=== PATIENT | male | born 1985 | race Caucasian/White ===

== ENCOUNTER 2018-07-09 04:50 | Emergency (ER) | payer OTHER ==
[~2018-07-09] VITALS: Ht 175.3 cm; Wt 108.9 kg
--- NOTE | 2018-07-09 04:52 | ED.ADGEN ---
Past History Past Medical History: Kidney Stones Adult General Chief Complaint Chief Complaint ".. I woke up with severe rt. flank and abd. pain.. I was nauseated... stabbing severe pain in my Rt. flank.. I was sweating... It cheyanne felt like when I had a kidney stone before..."..." I did let myself get dehydrated ...".." I am however already starting to feel better.. I did drink to take bottles of water..." HPI HPI Patient is a 33 year old male who presents with above hx and complaints of severe right flank pain. Patient relates pain was similar to previous kidney stone episode. Patient denies any trauma. Patient denies any intake bad food. Patient recently consumed a course of fettuccine with chicken and shrimp. Patient denies any past history of gallbladder colic. Patient states his pain was 10 out of 10 at home but by the time he arrived to the emergency department is markedly decreased. She denies any travel. Patient denies any immunosuppression. Patient denies any trauma. Patient normally healthy. Review of Systems Review of Systems Constitutional: Denies fever or chills [] Eyes: Denies change in visual acuity, redness, or eye pain [] HENT: Denies nasal congestion or sore throat [] Respiratory: Denies cough or shortness of breath [] Cardiovascular: No additional information not addressed in HPI [] GI: History of right flank abdominal pain, nausea,. Denies vomiting, bloody stools or diarrhea [] : Denies dysuria. Patient thinks he may be having some hematuria [] Musculoskeletal: Denies back pain or joint pain [] Integument: Denies rash or skin lesions [] Neurologic: Denies headache, focal weakness or sensory changes [] Endocrine: Denies polyuria or polydipsia [] All other systems were reviewed and found to be within normal limits, except as documented in this note. Family History Family History History of renal stones Current Medications Current Medications Current Medications Medications (Trade) Dose Ordered Sig/Kylee Start Time Stop Time Status Last Admin Dose Admin Famotidine (Pepcid Vial) 20 mg STK-MED ONCE 07/09/18 05:31 07/09/18 05:32 DC Ketorolac Tromethamine (Toradol 30mg Vial) 30 mg STK-MED ONCE 07/09/18 05:31 07/09/18 05:32 DC Lactated Ringer's 1,000 ml @ 1,000 mls/hr Q1H 07/09/18 05:15 07/09/18 06:14 DC 07/09/18 05:26 1,000 MLS/HR Ondansetron HCl (Zofran) 4 mg STK-MED ONCE 07/09/18 05:31 07/09/18 05:32 DC See nursing for home meds Allergies Allergies Allergies Coded Allergies Type Severity Reaction Last Updated Verified Penicillins Allergy Intermediate rash 07/09/18 Yes Physical Exam Physical Exam Constitutional: Well developed, well nourished, moderately acute distress, non- toxic appearance. [] HENT: Normocephalic, atraumatic, bilateral external ears normal, oropharynx moist, no oral exudates, nose normal. [] Eyes: PERRLA, EOMI, conjunctiva normal, no discharge. [] Neck: Normal range of motion, no tenderness, supple, no stridor. [] Cardiovascular:Heart rate regular rhythm, no murmur [] Lungs & Thorax: Bilateral breath sounds with apex on auscultation [] Abdomen: Bowel sounds decreased, soft, right flank tenderness on percussion, no masses, no pulsatile masses. Declines rectal exam at this time. Testicles nontender. No penile discharge. No true rebound pain. Skin: Warm, dry, no erythema, no rash. [] Back: No tenderness, no CVA tenderness. [] Extremities: No tenderness, no cyanosis, no clubbing, ROM intact, no edema. [] No true psoas sign on right. Neurologic: Alert and oriented X 3, normal motor function, normal sensory function, no focal deficits noted. [] Psychologic: Affect anxious, judgement normal, mood normal. [] Current Patient Data Vital Signs Vital Signs Date Time Temp Pulse Resp B/P (MAP) Pulse Ox O2 Delivery O2 Flow Rate FiO2 07/09/18 06:07 89 18 124/81 (95) 100 Room Air 07/09/18 05:43 97.5 Lab Results Laboratory Tests Test 07/09/18 05:18 07/09/18 05:25 Urine Collection Type Unknown Urine Color Yellow Urine Clarity Clear Urine pH 5.5 Urine Specific [place] >=1.030 Urine Protein Neg (NEG-TRACE) Urine Glucose (UA) Neg mg/dL (NEG) Urine Ketones (Stick) Neg mg/dL (NEG) Urine Blood Large (NEG) Urine Nitrite Neg (NEG) Urine Bilirubin Neg (NEG) Urine Urobilinogen Dipstick 0.2 mg/dL (0.2 mg/dL) Urine Leukocyte Esterase Neg (NEG) Urine RBC >40 /HPF (0-2) Urine WBC Occ /HPF (0-4) Urine Squamous Epithelial Cells Occ /LPF Urine Bacteria 0 /HPF (0-FEW) Urine Opiates Screen Neg (NEG) Urine Methadone Screen Neg (NEG) Urine Barbiturates Neg (NEG) Urine Phencyclidine Screen Neg (NEG) Urine Amphetamine/Methamphetamine Pos (NEG) Urine Benzodiazepines Screen Neg (NEG) Urine Cocaine Screen Neg (NEG) Urine Cannabinoids Screen Neg (NEG) Urine Ethyl Alcohol Neg (NEG) White Blood Count 8.2 x10^3/uL (4.0-11.0) Red Blood Count 4.80 x10^6/uL (4.30-5.70) Hemoglobin 15.0 g/dL (13.0-17.5) Hematocrit 43.7 % (39.0-53.0) Mean Corpuscular Volume 91 fL (79-100) Mean Corpuscular Hemoglobin 31 pg (25-35) Mean Corpuscular Hemoglobin Concent 34 g/dL (31-37) Red Cell Distribution Width 14.1 % (11.5-14.5) Platelet Count 337 x10^3/uL (140-400) Neutrophils (%) (Auto) 50 % (31-73) Lymphocytes (%) (Auto) 32 % (24-48) Monocytes (%) (Auto) 14 % (0-9) H Eosinophils (%) (Auto) 3 % (0-3) Basophils (%) (Auto) 1 % (0-3) Neutrophils # (Auto) 4.1 x10^3uL (1.8-7.7) Lymphocytes # (Auto) 2.7 x10^3/uL (1.0-4.8) Monocytes # (Auto) 1.1 x10^3/uL (0.0-1.1) Eosinophils # (Auto) 0.2 x10^3/uL (0.0-0.7) Basophils # (Auto) 0.1 x10^3/uL (0.0-0.2) Prothrombin Time 9.9 SEC (9.4-11.4) Prothrombin Time INR 1.0 (0.9-1.1) PTT 26 SEC (23-33) Sodium Level 138 mmol/L (136-145) Potassium Level 3.8 mmol/L (3.5-5.1) Chloride Level 102 mmol/L (98-107) Carbon Dioxide Level 29 mmol/L (21-32) Anion Gap 7 (6-14) Blood Urea Nitrogen 23 mg/dL (8-26) Creatinine 1.2 mg/dL (0.7-1.3) Estimated GFR (Cockcroft-Gault) 70.2 Glucose Level 117 mg/dL (70-99) H Calcium Level 9.1 mg/dL (8.5-10.1) Total Bilirubin 0.3 mg/dL (0.2-1.0) Direct Bilirubin 0.1 mg/dL (0.0-0.2) Aspartate Amino Transferase (AST) 39 U/L (15-37) H Alanine Aminotransferase (ALT) 45 U/L (16-63) Alkaline Phosphatase 76 U/L (46-116) Total Protein 7.9 g/dL (6.4-8.2) Albumin 3.8 g/dL (3.4-5.0) Lipase 99 U/L (73-393) EKG EKG [] Radiology/Procedures Radiology/Procedures My interpretation of abdomen film shows no acute cardiopulmonary findings. No free air under the diaphragm. There is increased stool throughout the colon. Nonspecific bowel gas pattern CT of abdomen shows no acute surgical processes. No obvious findings of hydronephrosis. No obvious signs of appendicitis or colon pathology.[] See formal report when available Course & Med Decision Making Course & Med Decision Making Pertinent Labs and Imaging studies reviewed. (See chart for details). Patient remain on a clear fluid diet. Patient to push fluids. Patient follow- up urine results. Patient to repeat UA. Patient to take Tylenol and ibuprofen for pain. For marked pain may take Vicoprofen up 4 times a day. Patient to take Zofran for nausea and vomiting. Patient to save any stone passed in his urine. Patient to follow-up primary care. Patient return if any concerns. Patient must not allow himself to get dehydrated. [] Final Impression Final Impression 1. Abdomen Pain[]-right flank 2. Renal colic 3. Hematuria 4. Urine positive for amphetamine 5. Constipation Dragon Disclaimer Dragon Disclaimer This electronic medical record was generated, in whole or in part, using a voice recognition dictation system. Dragon Disclaimer This chart was dictated in whole or in part using Voice Recognition software in a busy, high-work load, and often noisy Emergency Department environment. It may contain unintended and wholly unrecognized errors or omissions. Discharge Summary Visit Information Final Diagnosis Problems Medical Problems: (1) Renal colic on right side Status: Acute Brief Hospital Course Allergies Allergies Coded Allergies Type Severity Reaction Last Updated Verified Penicillins Allergy Intermediate rash 07/09/18 Yes Vital Signs Vital Signs Date Time Temp Pulse Resp B/P (MAP) Pulse Ox O2 Delivery O2 Flow Rate FiO2 07/09/18 06:07 89 18 124/81 (95) 100 Room Air 07/09/18 05:43 97.5 Lab Results Laboratory Tests Test 07/09/18 05:18 07/09/18 05:25 Urine Collection Type Unknown Urine Color Yellow Urine Clarity Clear Urine pH 5.5 Urine Specific [place] >=1.030 Urine Protein Neg (NEG-TRACE) Urine Glucose (UA) Neg mg/dL (NEG) Urine Ketones (Stick) Neg mg/dL (NEG) Urine Blood Large (NEG) Urine Nitrite Neg (NEG) Urine Bilirubin Neg (NEG) Urine Urobilinogen Dipstick 0.2 mg/dL (0.2 mg/dL) Urine Leukocyte Esterase Neg (NEG) Urine RBC >40 /HPF (0-2) Urine WBC Occ /HPF (0-4) Urine Squamous Epithelial Cells Occ /LPF Urine Bacteria 0 /HPF (0-FEW) Urine Opiates Screen Neg (NEG) Urine Methadone Screen Neg (NEG) Urine Barbiturates Neg (NEG) Urine Phencyclidine Screen Neg (NEG) Urine Amphetamine/Methamphetamine Pos (NEG) Urine Benzodiazepines Screen Neg (NEG) Urine Cocaine Screen Neg (NEG) Urine Cannabinoids Screen Neg (NEG) Urine Ethyl Alcohol Neg (NEG) White Blood Count 8.2 x10^3/uL (4.0-11.0) Red Blood Count 4.80 x10^6/uL (4.30-5.70) Hemoglobin 15.0 g/dL (13.0-17.5) Hematocrit 43.7 % (39.0-53.0) Mean Corpuscular Volume 91 fL (79-100) Mean Corpuscular Hemoglobin 31 pg (25-35) Mean Corpuscular Hemoglobin Concent 34 g/dL (31-37) Red Cell Distribution Width 14.1 % (11.5-14.5) Platelet Count 337 x10^3/uL (140-400) Neutrophils (%) (Auto) 50 % (31-73) Lymphocytes (%) (Auto) 32 % (24-48) Monocytes (%) (Auto) 14 % (0-9) Eosinophils (%) (Auto) 3 % (0-3) Basophils (%) (Auto) 1 % (0-3) Neutrophils # (Auto) 4.1 x10^3uL (1.8-7.7) Lymphocytes # (Auto) 2.7 x10^3/uL (1.0-4.8) Monocytes # (Auto) 1.1 x10^3/uL (0.0-1.1) Eosinophils # (Auto) 0.2 x10^3/uL (0.0-0.7) Basophils # (Auto) 0.1 x10^3/uL (0.0-0.2) Prothrombin Time 9.9 SEC (9.4-11.4) Prothromb Time International Ratio 1.0 (0.9-1.1) Activated Partial Thromboplast Time 26 SEC (23-33) Sodium Level 138 mmol/L (136-145) Potassium Level 3.8 mmol/L (3.5-5.1) Chloride Level 102 mmol/L (98-107) Carbon Dioxide Level 29 mmol/L (21-32) Anion Gap 7 (6-14) Blood Urea Nitrogen 23 mg/dL (8-26) Creatinine 1.2 mg/dL (0.7-1.3) Estimated GFR (Cockcroft-Gault) 70.2 Glucose Level 117 mg/dL (70-99) Calcium Level 9.1 mg/dL (8.5-10.1) Total Bilirubin 0.3 mg/dL (0.2-1.0) Direct Bilirubin 0.1 mg/dL (0.0-0.2) Aspartate Amino Transf (AST/SGOT) 39 U/L (15-37) Alanine Aminotransferase (ALT/SGPT) 45 U/L (16-63) Alkaline Phosphatase 76 U/L (46-116) Total Protein 7.9 g/dL (6.4-8.2) Albumin 3.8 g/dL (3.4-5.0) Lipase 99 U/L (73-393) Brief Hospital Course Mr. Ayala is a 33 old male who presented with suspect renal colic and hematuria. Discharge Information Condition at Discharge: Improved, Stable Disposition/Orders: D/C to Home Dischare Medications Current Medications Lactated Ringer's 1,000 ml @ 1,000 mls/hr Q1H IV Last administered on at 05:26; Admin Dose 1,000 MLS/HR; Start 07/09/18 at 05:15; Stop 07/09/18 at 06:14; Status DC Ondansetron HCl (Zofran) 4 mg 1X ONCE IV Last administered on 07/09/18at 05:37 ; Admin Dose 4 MG; Start 07/09/18 at 06:00; Stop 07/09/18 at 06:01; Status DC Famotidine (Pepcid Vial) 20 mg 1X ONCE IVP Last administered on 07/09/18at 05: 38; Admin Dose 20 MG; Start 07/09/18 at 06:00; Stop 07/09/18 at 06:01; Status DC Ketorolac Tromethamine (Toradol 30mg Vial) 30 mg 1X ONCE IV Last administered on 07/09/18at 05:38; Admin Dose 30 MG; Start 07/09/18 at 06:00; Stop 07/09/18 at 06:01; Status DC Ondansetron HCl (Zofran) 4 mg STK-MED ONCE .ROUTE ; Start 07/09/18 at 05:31; Stop 07/09/18 at 05:32; Status DC Ketorolac Tromethamine (Toradol 30mg Vial) 30 mg STK-MED ONCE .ROUTE ; Start at 05:31; Stop 07/09/18 at 05:32; Status DC Famotidine (Pepcid Vial) 20 mg STK-MED ONCE .ROUTE ; Start 07/09/18 at 05:31; Stop 07/09/18 at 05:32; Status DC Active Scripts Active Zofran (Ondansetron Hcl) 8 Mg Tablet 8 Mg PO QIDPRN PRN Hydrocodone-Ibuprofen 7.5-200 (Hydrocodone/Ibuprofen) 1 Each Tablet 1 Tab PO PRN Q6HRS PRN WILMAN OLIVA MD Jul 09, 2018 04:52
[2018-07-09] MEDS ORDERED: IV RINGERS SOLUTION,LACTATED 1,000 ML IV SCH (05:15)
[2018-07-09] MEDS ORDERED: KETOROLAC 30 MG/ML VIAL. ONE (05:31)
[2018-07-09] MEDS ORDERED: FAMOTIDINE 20 MG/2 ML VIAL ONE (05:31)
[2018-07-09] MEDS ORDERED: ONDANSETRON PF 4 MG/2 ML VIAL. ONE (05:31)
[2018-07-09 05:40] LABS: BASO # 0.1 x10^3/uL (0.0-0.2); BASO % 1 % (0-3); EOS # 0.2 x10^3/uL (0.0-0.7); EOS % 3 % (0-3); HEMATOCRIT 43.7 % (39.0-53.0); LYMPH # 2.7 x10^3/uL (1.0-4.8); LYMPH % 32 % (24-48); MEAN CORPUSCULAR HEMOGLOBIN 31 pg (25-35); MEAN CORPUSCULAR HGB CONC 34 g/dL (31-37); MEAN CORPUSCULAR VOLUME 91 fL (79-100); MONO # 1.1 x10^3/uL (0.0-1.1); MONO % 14 % (0-9); NEUT # 4.1 x10^3uL (1.8-7.7); NEUT % 50 % (31-73); PLATELET COUNT 337 x10^3/uL (140-400); RED CELL DISTRIBUTION WIDTH 14.1 % (11.5-14.5); WHITE BLOOD COUNT 8.2 x10^3/uL (4.0-11.0)
[2018-07-09 05:47] LABS: BILIRUBIN,URINE NEG (NEG); CLARITY,URINE CLEAR; COLOR,URINE YELLOW; GLUCOSE,URINE NEG (NEG); NITRITE,URINE NEG (NEG); UROBILINOGEN,URINE 0.2 mg/dL (0.2 mg/dL)
[2018-07-09 05:48] LABS: BACTERIA,URINE 0 /HPF (0-FEW); BARBITURATES NEG (NEG); BENZODIAZEPINES NEG (NEG); CANNABINOIDS NEG (NEG); COCAINE NEG (NEG); METHADONE NEG (NEG); OPIATES NEG (NEG); PHENCYCLIDINE NEG (NEG); RBC,URINE >40 /HPF (0-2); SQUAMOUS EPITHELIAL CELL,UR OCC /LPF; WBC,URINE OCC /HPF (0-4)
[2018-07-09 05:50] LABS: AMPHETAMINE/METHAMPHETAMINE POS (NEG)
--- NOTE | 2018-07-09 05:51 | RAD ---
Acute abdominal series to include a PA chest 07/09/2018 Clinical History: Right flank pain. A PA digital radiograph of the chest was obtained. Supine and erect AP digital radiographs of the abdomen/pelvis were obtained. No previous studies are available for comparison. The cardiac and mediastinal silhouettes are within normal limits in size and configuration. No pulmonary infiltrate is seen. No pleural effusion or pneumothorax is noted. The abdominal bowel gas pattern is nonobstructive. A moderate amount stool is seen throughout the colon. There is no evidence of free air. No radiopaque calculus is seen. The osseous structures are grossly intact. Impression: Negative study. Electronically signed by: Adiel Doshi MD (07/09/2018 5:48 AM) [id number]
[2018-07-09] MEDS ORDERED: ONDANSETRON PF 4 MG/2 ML VIAL. IV ONE (06:00)
[2018-07-09] MEDS ORDERED: FAMOTIDINE 20 MG/2 ML VIAL IVP ONE (06:00)
[2018-07-09] MEDS ORDERED: KETOROLAC 30 MG/ML VIAL. IV ONE (06:00)
[2018-07-09 06:04] LABS: ALBUMIN 3.8 g/dL (3.4-5.0); CALCIUM 9.1 mg/dL (8.5-10.1); CREATININE 1.2 mg/dL (0.7-1.3); DIRECT BILIRUBIN 0.1 mg/dL (0.0-0.2); GFR 70.2; POTASSIUM 3.8 mmol/L (3.5-5.1); TOTAL BILIRUBIN 0.3 mg/dL (0.2-1.0)
[2018-07-09 06:07] VITALS: BP 124/81
[2018-07-09] MEDS ORDERED: HYDR-1179 PO (06:21)
[2018-07-09] MEDS ORDERED: ONDA8TAB9 PO (06:21)
--- NOTE | 2018-07-09 06:23 | RAD ---
CT scan of the abdomen and pelvis without contrast 07/09/2018 CLINICAL HISTORY: Right flank pain. TECHNIQUE: Unenhanced, contiguous, 3 mm axial sections were obtained through the abdomen and pelvis. One or more of the following individualized dose reduction techniques were utilized for this study: 1. Automated exposure control. 2. Adjustment of the mA and/or kV according to patient size. 3. Use of iterative reconstruction technique. FINDINGS: Images through the lung bases are within normal limits. The liver, spleen, pancreas, and adrenal glands are within normal limits. Mild dilatation of the right intrarenal collecting system is seen. The right ureter is mildly dilated throughout its course. Within the distal right ureter at the level of the right UVJ projecting medially into the urinary bladder a 2 to 3 mm distal right ureteral calculus is seen. This is causing mild obstruction of the right collecting system. No focal abnormality of the left kidney is seen. The abdominal aorta tapers normally. The gallbladder is contracted. No free fluid or free air is within the abdomen. There is no evidence of bowel obstruction. The appendix is well-visualized and is within normal limits. The osseous structures are grossly intact. IMPRESSION: 2 to 3 mm distal right ureteral calculus is seen at the right UVJ which is causing mild obstruction of the right collecting system. Electronically signed by: Adiel Doshi MD (07/09/2018 6:20 AM) [id number]
[2018-07-09 06:33] LABS: TOTAL PROTEIN 7.9 g/dL (6.4-8.2)
== END 2018-07-09 06:38 | disposition home or self-care (01) ==
LOC: ER 04:50
DX: N23 Unspecified renal colic (principal); R31.9 Hematuria, unspecified; K59.00 Constipation, unspecified; F15.10 Other stimulant abuse, uncomplicated; Z87.442 Personal history of urinary calculi; Z88.0 Allergy status to penicillin
CPT/HCPCS: 36415; 74022; 74176; 80048; 80076; 80307; 81001; 83690; 85025; 85610; 85730; 96374; 96375; 99284; J1885; J2405; J3490; J7120

== ENCOUNTER 2018-08-25 17:40 | Emergency (ER) | payer OTHER ==
[~2018-08-25] VITALS: Ht 175.3 cm; Wt 107.5 kg
[~2018-08-25 17:40] MED LIST: HYDR-1179 PO; ONDA8TAB9 PO
[2018-08-25 18:02] VITALS: BP 122/75
--- NOTE | 2018-08-25 18:11 | ED.ADGEN ---
Past History Past Medical History: GERD, Kidney Stones Past Surgical History: No Surgical History Alcohol Use: None Drug Use: None Social History Narrative: Positive for meth on last visit Adult General Chief Complaint Chief Complaint ". I ve been running a fever.. cough... sore throat.. just don't feel well.. weak... tired the last couple days..." HPI HPI Patient is a 33 year old male who presents with above hx and complaints of feve r, malaise, sore throat, and a nonproductive cough. Patient denies any specific ill contacts. No recent travel. Patient's symptoms have been present the last 2 days. Patient does smoke. Does have a history of GERD. Patient denies any history of immunosuppression. Patient did not receive a flu vaccination this season. Review of Systems Review of Systems Constitutional: Subjective complaints of fever Eyes: Denies change in visual acuity, redness, or eye pain [] HENT: History of nasal congestion and sore throat [] Respiratory: History of a nonproductive cough Cardiovascular: No additional information not addressed in HPI [] GI: Denies abdominal pain, nausea, vomiting, bloody stools or diarrhea [] : Denies dysuria or hematuria [] Musculoskeletal: Denies back pain or joint pain [] Integument: Denies rash or skin lesions [] Neurologic: Denies headache, focal weakness or sensory changes [] Endocrine: Denies polyuria or polydipsia [] All other systems were reviewed and found to be within normal limits, except as documented in this note. Family History Family History Noncontributory Current Medications Current Medications Current Medications Medications (Trade) Dose Ordered Sig/Kylee Start Time Stop Time Status Last Admin Dose Admin Ibuprofen (Motrin) 600 mg 1X ONCE 08/25/18 18:30 08/25/18 18:31 DC 08/25/18 18:31 600 MG Allergies Allergies Allergies Coded Allergies Type Severity Reaction Last Updated Verified Penicillins Allergy Intermediate rash 07/09/18 Yes Physical Exam Physical Exam Constitutional: Mild distress, non-toxic appearance. [] HENT: Normocephalic, atraumatic, bilateral external ears normal, oropharynx moist, postnasal drainage, mild erythema no oral exudates, nose swollen turbinates and clear rhinorrhea Eyes: PERRLA, EOMI, conjunctiva normal, no discharge. [] Neck: Normal range of motion, no tenderness, supple, no stridor. [] Cardiovascular:Heart rate regular rhythm, no murmur [] Lungs & Thorax: Bilateral breath sounds equal apex with few scattered wheezes on auscultation [] Abdomen: Bowel sounds normal, soft, no tenderness, no masses, no pulsatile masses. [] Skin: Warm, dry, no erythema, no rash. [] Back: No tenderness, no CVA tenderness. [] Extremities: No tenderness, no cyanosis, no clubbing, ROM intact, no edema. [] Neurologic: Alert and oriented X 3, normal motor function, normal sensory function, no focal deficits noted. [] Psychologic: Affect anxious, judgement normal, mood normal. [] Current Patient Data Vital Signs Vital Signs Date Time Temp Pulse Resp B/P (MAP) Pulse Ox O2 Delivery O2 Flow Rate FiO2 08/25/18 18:32 103.1 08/25/18 18:02 115 97 08/25/18 17:52 20 122/75 (91) Room Air Lab Results Laboratory Tests Test 08/25/18 17:55 08/25/18 18:20 Influenza Type A (Rapid) Negative (NEGATIVE) Influenza Type B (Rapid) Negative (NEGATIVE) Group A Streptococcus Rapid Negative (NEGATIVE) Urine Collection Type Unknown Urine Color Celi Urine Clarity Hazy Urine pH 8.5 Urine Specific [place] 1.015 Urine Protein 30 mg/dl (NEG-TRACE) Urine Glucose (UA) Neg mg/dL (NEG) Urine Ketones (Stick) Neg mg/dL (NEG) Urine Blood Neg (NEG) Urine Nitrite Neg (NEG) Urine Bilirubin Neg (NEG) Urine Urobilinogen Dipstick 1 mg/dL (0.2 mg/dL) Urine Leukocyte Esterase Neg (NEG) Urine RBC 0 /HPF (0-2) Urine WBC 0 /HPF (0-4) Urine Squamous Epithelial Cells Occ /LPF Urine Bacteria 0 /HPF (0-FEW) Urine Opiates Screen Neg (NEG) Urine Methadone Screen Neg (NEG) Urine Barbiturates Neg (NEG) Urine Phencyclidine Screen Neg (NEG) Urine Amphetamine/Methamphetamine Neg (NEG) Urine Benzodiazepines Screen Neg (NEG) Urine Cocaine Screen Neg (NEG) Urine Cannabinoids Screen Neg (NEG) Urine Ethyl Alcohol Neg (NEG) EKG EKG [] Radiology/Procedures Radiology/Procedures My interpretation of chest x-ray shows no acute cardiopulmonary findings. No significant infiltrates.[] Course & Med Decision Making Course & Med Decision Making Pertinent Labs and Imaging studies reviewed. (See chart for details) Patient push fluids. Patient take Tylenol and ibuprofen for discomfort. Patient follow-up primary care. Patient consider taking Benadryl 25-50 mg 4 times a day for drainage and congestion and cough. Return of any concerns. Patient encouraged to stop smoking. [] Final Impression Final Impression 1. Fever 2. Tobacco Use[] 3. Viral Syndrome Dragon Disclaimer Dragon Disclaimer This electronic medical record was generated, in whole or in part, using a voice recognition dictation system. Discharge Summary Visit Information Final Diagnosis Problems Medical Problems: (1) Viral syndrome Status: Acute Brief Hospital Course Allergies Allergies Coded Allergies Type Severity Reaction Last Updated Verified Penicillins Allergy Intermediate rash 07/09/18 Yes Vital Signs Vital Signs Date Time Temp Pulse Resp B/P (MAP) Pulse Ox O2 Delivery O2 Flow Rate FiO2 08/25/18 18:32 103.1 08/25/18 18:02 115 97 08/25/18 17:52 20 122/75 (91) Room Air Lab Results Laboratory Tests Test 08/25/18 17:55 08/25/18 18:20 Influenza Type A (Rapid) Negative (NEGATIVE) Influenza Type B (Rapid) Negative (NEGATIVE) Group A Streptococcus Rapid Negative (NEGATIVE) Urine Collection Type Unknown Urine Color Celi Urine Clarity Hazy Urine pH 8.5 Urine Specific [place] 1.015 Urine Protein 30 mg/dl (NEG-TRACE) Urine Glucose (UA) Neg mg/dL (NEG) Urine Ketones (Stick) Neg mg/dL (NEG) Urine Blood Neg (NEG) Urine Nitrite Neg (NEG) Urine Bilirubin Neg (NEG) Urine Urobilinogen Dipstick 1 mg/dL (0.2 mg/dL) Urine Leukocyte Esterase Neg (NEG) Urine RBC 0 /HPF (0-2) Urine WBC 0 /HPF (0-4) Urine Squamous Epithelial Cells Occ /LPF Urine Bacteria 0 /HPF (0-FEW) Urine Opiates Screen Neg (NEG) Urine Methadone Screen Neg (NEG) Urine Barbiturates Neg (NEG) Urine Phencyclidine Screen Neg (NEG) Urine Amphetamine/Methamphetamine Neg (NEG) Urine Benzodiazepines Screen Neg (NEG) Urine Cocaine Screen Neg (NEG) Urine Cannabinoids Screen Neg (NEG) Urine Ethyl Alcohol Neg (NEG) Brief Hospital Course Mr. Ayala is a 33 old male who presented with viral syndrome. Discharge Information Condition at Discharge: Stable Disposition/Orders: D/C to Home Dischare Medications Current Medications Ibuprofen (Motrin) 600 mg 1X ONCE PO Last administered on 08/25/18at 18:31; Admin Dose 600 MG; Start 08/25/18 at 18:30; Stop 08/25/18 at 18:31; Status DC Active Scripts Active Zofran (Ondansetron Hcl) 8 Mg Tablet 8 Mg PO QIDPRN PRN Hydrocodone-Ibuprofen 7.5-200 (Hydrocodone/Ibuprofen) 1 Each Tablet 1 Tab PO PRN Q6HRS PRN Dragon Disclaimer This chart was dictated in whole or in part using Voice Recognition software in a busy, high-work load, and often noisy Emergency Department environment. It may contain unintended and wholly unrecognized errors or omissions. WILMAN OLIVA MD August 25, 2018 18:11
[2018-08-25] MEDS ORDERED: IBUPROFEN 600 MG TABLET. PO ONE (18:30)
[2018-08-25 18:45] LABS: BILIRUBIN,URINE NEG (NEG); CLARITY,URINE HAZY; COLOR,URINE AMBER; GLUCOSE,URINE NEG (NEG); NITRITE,URINE NEG (NEG); UROBILINOGEN,URINE 1 mg/dL (0.2 mg/dL)
[2018-08-25 18:46] LABS: BACTERIA,URINE 0 /HPF (0-FEW); BARBITURATES NEG (NEG); BENZODIAZEPINES NEG (NEG); CANNABINOIDS NEG (NEG); COCAINE NEG (NEG); METHADONE NEG (NEG); OPIATES NEG (NEG); PHENCYCLIDINE NEG (NEG); RBC,URINE 0 /HPF (0-2); SQUAMOUS EPITHELIAL CELL,UR OCC /LPF; WBC,URINE 0 /HPF (0-4)
[2018-08-25 18:47] LABS: AMPHETAMINE/METHAMPHETAMINE NEG (NEG)
[2018-08-25 18:48] LABS: INFLUENZA A PATIENT NEGATIVE (NEGATIVE); INFLUENZA B PATIENT NEGATIVE (NEGATIVE)
--- NOTE | 2018-08-26 00:16 | RAD ---
PA and lateral chest radiographs 08/25/2018 Clinical History: Cough and fever. Asthma PA and lateral digital radiographs of the chest were obtained. No previous studies are available for comparison. The cardiac and mediastinal silhouettes are within normal limits in size and configuration. No pulmonary infiltrate is seen. No pleural effusion or pneumothorax is noted. The osseous structures are grossly intact. Impression: No radiographic evidence of active cardiopulmonary disease. Electronically signed by: Adiel Doshi MD (08/26/2018 12:13 AM) [facility]
== END 2018-08-25 19:10 | disposition home or self-care (01) ==
LOC: ER 17:40
DX: B34.9 Viral infection, unspecified (principal); K21.9 Gastro-esophageal reflux disease without esophagitis; Z87.442 Personal history of urinary calculi; Z72.0 Tobacco use; Z88.0 Allergy status to penicillin
CPT/HCPCS: 36415; 71046; 80307; 81001; 87070; 87804; 87880; 99285